=== PATIENT | male | born 1945 | race Caucasian/White ===

== ENCOUNTER 2020-09-22 00:18 | Observation (INO) ==
[2020-09-22 02:29] LABS: Basophils % 0.8 % (0.0-0.8); Eosinophils % 0.8 % (0.00-10.9); Hematocrit 41.6 VOL% (42.0-52.0); Hemoglobin 14.5 GM/DL (14.0-18.0); Immature Granulocytes % 0.6 %; Immature Granulocytes Absolute 0.03 #; Lymphocytes # 1.3 10*3/uL (1.4-4.0); Lymphocytes % 27.7 % (21.2-54.2); Mean Corpuscular HGB Conc 34.9 GM/DL (32-36); Mean Corpuscular Volume 93.5 FL (87-102); Mean Platelet Volume 9.6 FL (9.6-12.0); Monocytes % 23.1 % (1.7-12.7); Platelet Count 170 T/CUMM (130-400); Red Blood Count 4.45 MC/CUMM (3.8-5.5); Red Cell Distribution Width 13.1 % (9.3-17.3); White Blood Count 4.8 T/CUMM (4-12)
[2020-09-22 02:41] LABS: PT Patient Result 11.2 SECS (9.8-11.9)
[2020-09-22 02:46] LABS: Alanine Aminotransferase 30 U/L (16-61); Albumin 3.6 G/DL (3.4-5.0); Alkaline Phosphatase 81 U/L (45-117); Aspartate Amino Transferase 35 U/L (0-37); Bilirubin,Total < 0.39 MG/DL (0.2-1.0); Blood Urea Nitrogen 13 MG/DL (7-18); Calcium 8.6 MG/DL (8.5-10.1); Estimated Glom Filtration Rate 75 ML/MIN; Glucose 100 MG/DL (74-106); Total Protein 7.4 G/DL (6.4-8.3)
[2020-09-22 03:02] LABS: Band Neutrophils 2 % (0-10); Lymphocytes 20 % (20-55); Platelet Estimate Normal; Segmented Neutrophils 55 % (50-85); Total Cells Counted 100
[2020-09-22] MEDS ORDERED: ENOXAPARIN 100 MG/ML SYRINGE SUBCUT SCH (05:30)
[2020-09-22 05:51] LABS: Ferritin 279.1 ng/ml (26-388)
[2020-09-22 06:15] LABS: Risk Ratio 3.79; VLDL CHOLESTEROL 15.4 MG/DL
[2020-09-22 06:44] LABS: Bilirubin,Urine Negative (Negative); Blood, Urine Negative (Negative); Glucose,Urine (UA) Negative (Negative); Hyaline Casts,Urine 3 /LPF (0-3); Ketones,Urine 5 mg/dL (Negative); Mucus,Urine Occasional /LPF (Occasional); Nitrite,Urine Negative (Negative); Protein,Urine Negative; RBC,Urine 2 /HPF (0-4); Urine Appearance CLEAR (Clear); Urine Color Yellow (Yellow); Urine Specific Gravity 1.031 (1.001-1.035); WBC,Urine <1 /HPF (0-6)
[2020-09-22 06:51] LABS: Barbiturates Screen,Urine Negative (Negative); Benzodiazepines Screen,Urine Negative (Negative); Cannabinoid Screen,Urine Negative (Negative); Opiate Screen,Urine Negative (Negative); Phencyclidine Screen,Urine Negative (Negative)
[2020-09-22] MEDS: FAMOTIDINE 20 MG TABLET PO SCH ×2 (08:35→21:20)
[2020-09-22] MEDS: CETIRIZINE 10 MG TABLET PO SCH (08:35)
[2020-09-22] MEDS: CHOLECALCIFEROL 1,000 UNIT TABLET PO SCH (08:35)
[2020-09-22] MEDS: ASCORBIC ACID 500 MG TABLET PO SCH (08:35)
[2020-09-22] MEDS: ASPIRIN 325 MG TABLET PO SCH (08:35)
[2020-09-22] MEDS: DEXAMETHASONE 4 MG/1 ML VIAL IV SCH (08:35)
[2020-09-22] MEDS: ZINC GLUCONATE 50 MG TABLET PO SCH (08:35)
[2020-09-22] MEDS ORDERED: ROSUVASTATIN 20 MG TABLET PO SCH (21:00)
[2020-09-23] MEDS ORDERED: ENOXAPARIN 40 MG/0.4 ML SYRINGE SUBCUT SCH (06:00)
[2020-09-23] MEDS: CETIRIZINE 10 MG TABLET PO SCH (09:52)
[2020-09-23] MEDS: ASPIRIN 325 MG TABLET PO SCH (09:52)
[2020-09-23] MEDS: FAMOTIDINE 20 MG TABLET PO SCH (09:52)
[2020-09-23] MEDS: ZINC GLUCONATE 50 MG TABLET PO SCH (09:52)
[2020-09-23] MEDS: ASCORBIC ACID 500 MG TABLET PO SCH (09:52)
[2020-09-23] MEDS: CHOLECALCIFEROL 1,000 UNIT TABLET PO SCH (09:52)
[2020-09-23] MEDS: DEXAMETHASONE 4 MG/1 ML VIAL IV SCH (09:53)
[2020-09-23 11:50] VITALS: BP 150/103
[2020-09-24] MEDS ORDERED: AZITHROMYCIN 250 MG TABLET PO SCH (09:00)
== END 2020-09-23 13:24 | disposition home or self-care (01) ==
LOC: EDBD → EDUNIT# → N.ED 00:18 → N.EDINP 00:18 → N.2E 00:18 → SUATTDRO 04:46 → N.2E 19:13
PROVIDERS: ADMIT Internal Medicine; ATTEND Internal Medicine